=== PATIENT | male | born 1945 | race Two or more races ===

== ENCOUNTER 2022-10-05 12:10 | Emergency (ER) | payer OTHER ==
[2022-10-05] MEDS ORDERED: AZIT1POW PO (13:49)
[2022-10-05 14:00] VITALS: BP 153/100
== END 2022-10-05 14:01 | disposition home or self-care (01) ==
LOC: ER 12:10
DX: J01.90 Acute sinusitis, unspecified (principal)
CPT/HCPCS: 70486; 93005

== ENCOUNTER 2023-01-06 07:01 | Emergency (ER) | payer OTHER ==
[~2023-01-06] VITALS: Ht 170.2 cm; Wt 60.0 kg
[~2023-01-06 07:01] MED LIST: AZIT1POW PO
[2023-01-06 07:42] LABS: Basophils # (auto) 0.2 10 ^3/uL (0-0.2); Basophils % (auto) 1.1 % (0.0-2.0); Eosinophils # (auto) 0.1 10 ^3/uL (0-0.8); Hemoglobin 10.8 g/dL (13.5-17.5); Lymphocytes # (auto) 1.4 10 ^3/uL (0.4-5.4); Mean Corpuscular Hgb Conc. 32.6 g/dL (32.0-36.0)
[2023-01-06 07:44] LABS: Hematocrit 33.3 % (41.0-53.0); Lymphocytes % (auto) 9.9 % (10.0-50.0); Monocytes # (auto) 0.9 10 ^3/uL (0-1.3); Monocytes % (auto) 6.5 % (0.0-12.0); Neutrophils # (auto) 11.7 10 ^3/uL (1.6-8.6); Neutrophils % (auto) 81.5 % (37.0-80.0); Nucleated Red Blood Cells % 0.1 %; Red Blood Cells 4.01 10^6/uL (4.5-5.90); Red Cell Distribution Width 17.4 % (11.8-14.3); White Blood Cell 14.3 10^3/uL (4.4-10.8)
[2023-01-06 07:58] LABS: Albumin 2.8 g/dL (3.4-5.0); Potassium 3.9 mmol/L (3.5-5.1)
[2023-01-06 08:00] LABS: BUN/Creatinine Ratio 24.1 (10.0-20.0); Bilirubin, Total 0.3 mg/dL (0.2-1.0); Total Protein 7.2 g/dL (6.4-8.2)
[2023-01-06] MEDS ORDERED: PIPERACILLIN-TAZOB 3.375GM 100 ML IV ONE (08:30)
[2023-01-06] MEDS ORDERED: LEVO-28 PO (08:44)
[2023-01-06 09:35] VITALS: BP 115/68
== END 2023-01-06 08:43 | disposition home or self-care (01) ==
LOC: ER 07:01
DX: R00.0 Tachycardia, unspecified (principal); K94.23 Gastrostomy malfunction; D72.829 Elevated white blood cell count, unspecified; R06.02 Shortness of breath; Z88.1 Allergy status to other antibiotic agents
CPT/HCPCS: 36415; 71045; 74176; 80053; 83690; 83880; 84484; 85025; 85379; 96365; 99285; J2543

== ENCOUNTER → 2023-08-07 | Emergency (ER) | payer OTHER ==
[~2023-08-07] VITALS: Ht 170.2 cm; Wt 57.8 kg
[~2023-08-07] MED LIST changes: +CLINDAMYCIN 900MG IV 50 ML IV ONE; +LEVO500T91 PO; +VANCOMYCIN 1GM/250ML 250 ML IV ONE
[2023-08-07 13:56] LABS: Basophils # (auto) 0.1 10 ^3/uL (0-0.2); Basophils % (auto) 0.6 % (0.0-2.0); Eosinophils # (auto) 0.6 10 ^3/uL (0-0.8); Eosinophils % (auto) 6.6 % (0.0-7.0); Hematocrit 41.1 % (41.0-53.0); Hemoglobin 13.3 g/dL (13.5-17.5); Lymphocytes # (auto) 1.1 10 ^3/uL (0.4-5.4); Lymphocytes % (auto) 11.8 % (10.0-50.0); Mean Corpuscular Hemoglobin 27.3 pg (28.0-32.0); Mean Corpuscular Hgb Conc. 32.4 g/dL (32.0-36.0); Mean Corpuscular Volume 84.2 fL (80.0-100.0); Monocytes # (auto) 0.8 10 ^3/uL (0-1.3); Monocytes % (auto) 8.9 % (0.0-12.0); Neutrophils # (auto) 6.7 10 ^3/uL (1.6-8.6); Neutrophils % (auto) 72.1 % (37.0-80.0); Red Blood Cells 4.88 10^6/uL (4.5-5.90); Red Cell Distribution Width 15.2 % (11.8-14.3); White Blood Cell 9.3 10^3/uL (4.4-10.8)
[2023-08-07 14:20] LABS: Alanine Aminotransferase 30 U/L (7-40); Albumin 4.4 g/dL (3.2-4.8); Alkaline Phosphatase 113 U/L (46-116); Anion Gap 7 (5-15); Aspartate Aminotransferase 22 U/L (13-40); BUN/Creatinine Ratio 20.3 (10.0-20.0); Bilirubin, Total 0.3 mg/dL (0.2-1.0); Blood Urea Nitrogen 15 mg/dL (9-23); Calcium 9.4 mg/dL (8.5-10.1); Carbon Dioxide 29 mmol/L (20-30); Chloride 100 mmol/L (98-107); Glucose 122 mg/dL (74-106); Potassium 3.8 mmol/L (3.5-5.1); Sodium 136 mmol/L (136-145); Total Protein 7.5 g/dL (5.7-8.2)
[2023-08-07 15:21] LABS: Urine Bacteria NONE SEEN /hpf (None Seen); Urine Blood TRACE /uL (Negative); Urine Clarity Clear (Clear); Urine Color Yellow (Yellow); Urine Hyaline Cast FEW /lpf (0 - 2); Urine Mucus FEW (None Seen); Urine Protein, UAD Negative (Negative); Urine Specific Gravity 1.018 (1.001-1.035); Urine Urobilinogen Normal (Negative); Urine WBC <1 /hpf (0 - 3); Urine pH 5.5 (5.0-8.0)
[2023-08-07 16:24] LABS: INR 1.04 (0.9-1.15); Prothrombin Time 10.9 sec (9.3-11.8)
[2023-08-07 17:05] VITALS: PULSE 101; RESP 19; O2SAT 98
[2023-08-07 18:14] VITALS: BP 124/76; PULSE 99; RESP 15; TEMP 98.4; O2SAT 96
== END | disposition home or self-care (01) ==
LOC: ER 12:19
DX: L03.211 Cellulitis of face (principal); L02.01 Cutaneous abscess of face; Z90.49 Acquired absence of other specified parts of digestive tract; Z87.891 Personal history of nicotine dependence; Z79.2 Long term (current) use of antibiotics
CPT/HCPCS: 36415; 70486; 80053; 81001; 83605; 85025; 85610; 87040; 96365; 96368; 99285; J3370; J3490

== ENCOUNTER 2024-02-21 10:10 | Emergency (ER) | payer OTHER ==
[~2024-02-21] VITALS: Ht 170.2 cm; Wt 69.5 kg
[2024-02-21] VITALS (8 sets, daily range): BP systolic 105–126; BP diastolic 42–71; PULSE 68–86; RESP 10–21; TEMP 97.6–98.9; O2SAT 95–97
[~2024-02-21 10:10] MED LIST changes: -CLINDAMYCIN 900MG IV 50 ML IV ONE; -VANCOMYCIN 1GM/250ML 250 ML IV ONE
[2024-02-21 11:17] LABS: Basophils # (auto) 0.1 10 ^3/uL (0-0.2); Eosinophils # (auto) 2.2 10 ^3/uL (0-0.8); Lymphocytes # (auto) 0.5 10 ^3/uL (0.4-5.4)
[2024-02-21 11:18] LABS: Basophils % (auto) 0.5 % (0.0-2.0); Eosinophils % (auto) 14.3 % (0.0-7.0); Hematocrit 18.9 % (41.0-53.0); Lymphocytes % (auto) 3.5 % (10.0-50.0); Mean Corpuscular Hemoglobin 22.3 pg (28.0-32.0); Mean Corpuscular Hgb Conc. 31.8 g/dL (32.0-36.0); Mean Corpuscular Volume 70.1 fL (80.0-100.0); Monocytes # (auto) 0.9 10 ^3/uL (0-1.3); Monocytes % (auto) 5.8 % (0.0-12.0); Neutrophils # (auto) 11.7 10 ^3/uL (1.6-8.6); Neutrophils % (auto) 75.9 % (37.0-80.0); Nucleated Red Blood Cells % 0.2 %; Red Cell Distribution Width 19.9 % (11.8-14.3); White Blood Cell 15.4 10^3/uL (4.4-10.8)
[2024-02-21 11:38] LABS: INR 1.08 (0.9-1.15); Prothrombin Time 11.4 sec (9.3-11.8)
[2024-02-21 11:45] LABS: Alanine Aminotransferase 31 U/L (7-40); Albumin 3.7 g/dL (3.2-4.8); Alkaline Phosphatase 114 U/L (46-116); Anion Gap 5 (5-15); Aspartate Aminotransferase 15 U/L (13-40); BUN/Creatinine Ratio 32.7 (10.0-20.0); Blood Urea Nitrogen 18 mg/dL (9-23); Carbon Dioxide 30 mmol/L (20-30); Chloride 96 mmol/L (98-107); Glucose 116 mg/dL (74-106); Sodium 131 mmol/L (136-145)
[2024-02-21 11:46] LABS: Bilirubin, Total < 0.2 mg/dL (0.2-1.0); Total Protein 6.4 g/dL (5.7-8.2)
[2024-02-21] MEDS: SODIUM CHLORIDE 0.9% 500 ML IV ONE ×2 (13:03→18:35)
[2024-02-21] MEDS: SODIUM CHLORIDE 0.9% 1,000 ML IV ONE (18:35)
[2024-02-21 22:14] LABS: Hemoglobin 8.1 g/dL (13.5-17.5)
[2024-02-21 22:16] LABS: Hematocrit 25.2 % (41.0-53.0)
== END 2024-02-21 23:15 | disposition home or self-care (01) ==
LOC: ER 10:10
DX: E86.0 Dehydration (principal); D72.829 Elevated white blood cell count, unspecified; D50.9 Iron deficiency anemia, unspecified
CPT/HCPCS: 36415; 36430; 80053; 85014; 85018; 85025; 85610; 86850; 86900; 86901; 86920; 96360; 99291; J7040; P9016

== ENCOUNTER 2024-02-24 17:52 | Emergency (ER) | payer OTHER ==
[~2024-02-24] VITALS: Ht 175.3 cm; Wt 68.2 kg
[2024-02-24 19:16] LABS: Basophils # (auto) 0.1 10 ^3/uL (0-0.2); Eosinophils # (auto) 2.8 10 ^3/uL (0-0.8); Hemoglobin 8.3 g/dL (13.5-17.5); Lymphocytes # (auto) 0.5 10 ^3/uL (0.4-5.4); Monocytes % (auto) 5.2 % (0.0-12.0); Red Blood Cells 3.49 10^6/uL (4.5-5.90); White Blood Cell 18.8 10^3/uL (4.4-10.8)
[2024-02-24 19:18] LABS: Basophils % (auto) 0.4 % (0.0-2.0); Eosinophils % (auto) 14.8 % (0.0-7.0); Hematocrit 25.7 % (41.0-53.0); Lymphocytes % (auto) 2.7 % (10.0-50.0); Mean Corpuscular Hemoglobin 23.7 pg (28.0-32.0); Mean Corpuscular Hgb Conc. 32.2 g/dL (32.0-36.0); Mean Corpuscular Volume 73.6 fL (80.0-100.0); Neutrophils # (auto) 14.5 10 ^3/uL (1.6-8.6); Neutrophils % (auto) 76.9 % (37.0-80.0)
[2024-02-24 19:30] VITALS: PULSE 80; RESP 11; O2SAT 97
[2024-02-24 19:36] LABS: INR 1.12 (0.9-1.15); Partial Thromboplastin Time 32.2 SEC (24.5-34.5); Prothrombin Time 11.8 sec (9.3-11.8)
[2024-02-24 19:39] LABS: Alanine Aminotransferase 21 U/L (7-40); Alkaline Phosphatase 115 U/L (46-116); Anion Gap 3 (5-15); Aspartate Aminotransferase 15 U/L (13-40); BUN/Creatinine Ratio 28.6 (10.0-20.0); Blood Urea Nitrogen 16 mg/dL (9-23); Calcium 8.7 mg/dL (8.5-10.1); Carbon Dioxide 29 mmol/L (20-30); Chloride 94 mmol/L (98-107); Glucose 139 mg/dL (74-106); Potassium 4.4 mmol/L (3.5-5.1)
[2024-02-24 19:40] LABS: Albumin 3.4 g/dL (3.2-4.8); Bilirubin, Total 0.2 mg/dL (0.2-1.0)
[2024-02-24 19:48] LABS: Sodium 126 mmol/L (136-145)
[2024-02-24] MEDS: SODIUM CHLORIDE 0.9% 1,000 ML IV ONE (21:06)
[2024-02-24] MEDS: IOHEXOL 350 MG/ML 100ML IJ ONE (21:10)
[2024-02-24 21:20] LABS: Urine Bacteria None Seen /hpf (None Seen); Urine WBC None Seen /hpf (0 - 3)
[2024-02-24 21:27] LABS: Urine Blood Negative /uL (Negative); Urine Clarity Clear (Clear); Urine Color Light-Yellow (Yellow); Urine Protein, UAD Negative (Negative); Urine Specific Gravity 1.007 (1.001-1.035); Urine Urobilinogen Normal (Negative)
[2024-02-25] MEDS: PIPERACILLIN-TAZOB 3.375GM 100 ML IV ONE (01:17)
[2024-02-25 01:50] VITALS: BP 117/65; PULSE 78; RESP 11; TEMP 97.6; O2SAT 97
== END 2024-02-25 02:06 | disposition short-term general hospital (02) ==
LOC: ER 17:52 → EDBD 17:52 → EDUNIT# 17:52 → ER 02-25 02:06
DX: R04.0 Epistaxis (principal); E87.1 Hypo-osmolality and hyponatremia; E86.0 Dehydration; Z85.818 Personal history of malignant neoplasm of other sites of lip, oral cavity, and pharynx; Z87.891 Personal history of nicotine dependence; Z90.49 Acquired absence of other specified parts of digestive tract
CPT/HCPCS: 36415; 70487; 71045; 80053; 81001; 83880; 84484; 85025; 85610; 85730; 86850; 86900; 86901; 93005; 96361; 96365; 99285; J2543; J7030; Q9967